=== PATIENT | female | born 1990 | race Caucasian/White ===

== ENCOUNTER → 2016-03-15 | Outpatient (CLI) | payer OTHER | END | disposition home or self-care (01) | LOC: C.LAB 17:06 | PROVIDERS: ATTEND Internal Medicine Geriatric Medicine | DX: J02.9 Acute pharyngitis, unspecified (principal) ==

== ENCOUNTER → 2017-04-27 | Outpatient (CLI) | payer OTHER ==
[2017-04-27 19:10] LABS: BASO % 0.2 %; BASO ABS # 0.02 K/uL (0-0.2); EOS % 3.3 %; EOS ABS # 0.27 K/uL (0-0.5); HEMATOCRIT 42.2 % (37-47); HEMOGLOBIN 14.4 g/dL (12.0-16.0); IG# 0.02 K/uL (0.00-0.02); LYMPH % 24.2 %; LYMPH ABS # 1.97 K/uL (1.2-3.4); MEAN CELL VOLUME 82.6 fL (80-100); MEAN CORPUSCULAR HEMOGLOBIN 28.2 pg (25-34); MEAN CORPUSCULAR HGB CONC 34.1 g/dl (32-36); MEAN PLATELET VOLUME 10.2 fL (7.4-10.4); MONO % 10.4 %; MONO ABS # 0.85 K/uL (0.11-0.59); NEUT % 61.7 %; NEUT ABS # 5.01 K/uL (1.4-6.5); PLATELET COUNT 316 K/uL (130-400); RED CELL DISTRIBUTION WIDTH CV 12.1 % (11.5-14.5); RED CELL DISTRIBUTION WIDTH SD 36.6 fL (36.4-46.3); WHITE BLOOD COUNT 8.14 K/uL (4.8-10.8)
[2017-04-27 19:30] LABS: ALT/SGPT 35 U/L (12-78); BLOOD UREA NITROGEN 9 mg/dl (7-18); CALCIUM 8.9 mg/dl (8.5-10.1); CARBON DIOXIDE 27 mmol/L (21-32); CREATININE 0.81 mg/dl (0.60-1.20); GLUCOSE 108 mg/dl (70-99); POTASSIUM 3.2 mmol/L (3.5-5.1); SODIUM 139 mmol/L (136-145)
[2017-04-27 19:33] LABS: ALKALINE PHOSPHATASE 79 U/L (45-117); AST/SGOT 22 U/L (15-37); TOTAL PROTEIN 7.9 gm/dl (6.4-8.2)
== END | disposition home or self-care (01) ==
LOC: C.LAB 17:03
PROVIDERS: ATTEND Nurse Practitioner Adult Health
DX: R10.31 Right lower quadrant pain (principal)

== ENCOUNTER → 2017-05-02 | Outpatient (CLI) | payer OTHER ==
--- NOTE | 2017-05-02 11:44 | DIAGNOSTIC IMAGING REPORT ---
PELVIC COMPLETE NON OB CLINICAL HISTORY: 26 years-old Female presenting with R10.31 Abdominal pain, RLQ (right lower quadrant)[id number]. TECHNIQUE: Real-time grayscale and color and spectral Doppler ultrasound imaging of the pelvis was performed first using a transabdominal probe and subsequently transvaginal for better characterization. COMPARISON: CT from 04/09/2014. FINDINGS: Uterus: Normal. Anteverted. The uterus measures 8.2 x 3.4 x 4.4 cm. Endometrial stripe measures 6 mm in thickness. Endometrium normal-appearing. Cervix normal. Right adnexa: Right ovary contains numerous small follicles of similar size in the periphery of the ovary (up to 15 on the single image). Right ovary measures 4.6 x 1.7 x 2.0 cm. Normal color Doppler flow and arterial and venous waveforms within the ovarian parenchyma. Trace free fluid in the right adnexa. Left adnexa: Left ovary poorly visualized. Left ovary measures 3.4 x 1.6 x 2.2 cm. Normal color Doppler flow and arterial and venous waveforms within the ovarian parenchyma. Other: Trace free fluid, likely physiologic. IMPRESSION: No evidence of ovarian torsion. Numerous follicles in the right ovary could raise suspicion for polycystic ovarian syndrome in the appropriate clinical setting. The left ovary is poorly visualized but is not torsed. Electronically signed by: Manpreet Gama M.D. 05/02/2017 11:42 AM Dictated Date/Time: 05/02/2017 11:38 AM
== END | disposition home or self-care (01) ==
LOC: C.ULTRBC 10:18
PROVIDERS: ATTEND Nurse Practitioner Adult Health
DX: R10.31 Right lower quadrant pain (principal)

== ENCOUNTER → 2017-09-05 | Outpatient (CLI) | payer OTHER ==
--- NOTE | 2017-09-05 18:15 | DIAGNOSTIC IMAGING REPORT ---
RIGHT KNEE MRI HISTORY: RIGHT KNEE PAIN COMPARISON STUDY: Right knee 07/11/2017. TECHNIQUE: Multiplanar multisequence MRI of the right knee was performed according to standard department protocol without the use of contrast. FINDINGS: Menisci: The medial and lateral menisci are intact. Ligaments: The ACL, MCL, and LCL are intact. Full-thickness PCL tear near the tibial. There is mild edema surrounding the PCL. Extensor mechanism: The quadriceps tendon and patellar ligament are intact. Articular cartilage and bone: The articular cartilage is intact, and normal marrow signal intensity is seen throughout the imaged osseous structures. Joint effusion: Trace joint effusion. Soft tissues: Intact. IMPRESSION: Full-thickness PCL tear. Electronically signed by: Shawn Thompson M.D. 09/05/2017 6:14 PM Dictated Date/Time: 09/05/2017 5:54 PM
== END | disposition home or self-care (01) ==
LOC: C.MRI 16:50
PROVIDERS: ATTEND Family Medicine
DX: M25.561 Pain in right knee (principal)